=== PATIENT | female | born 1970 | race Two or more races ===

== ENCOUNTER → 2019-06-03 11:57 | Outpatient (CLI) | payer OTHER | END | disposition home or self-care (01) | LOC: LAB 11:57 | DX: N30.01 Acute cystitis with hematuria (principal) ==

== ENCOUNTER 2019-10-11 09:42 | Outpatient (CLI) | payer OTHER | END 2019-10-11 15:00 | disposition home or self-care (01) | LOC: LAB 09:42 | DX: J11.1 Influenza due to unidentified influenza virus with other respiratory manifestations (principal) ==

== ENCOUNTER → 2020-01-29 12:24 | Outpatient (CLI) | payer OTHER ==
[~2020-01-29 12:24] MED LIST: PERCOCET 5-3251 EACH PO; RECTICARE30 GM TOP
== END | disposition home or self-care (01) ==
LOC: EKG 12:24
PROVIDERS: ATTEND Surgery
DX: I10 Essential (primary) hypertension (principal); K62.5 Hemorrhage of anus and rectum; K64.8 Other hemorrhoids; K59.09 Other constipation

== ENCOUNTER 2020-02-05 05:40 | Day surgery (SDC) | payer OTHER ==
[2020-02-05] MEDS ORDERED: PERCOCET 5-3251 EACH PO (10:19)
[2020-02-05] MEDS ORDERED: RECTICARE30 GM TOP (10:20)
== END 2020-02-05 15:20 | disposition home or self-care (01) ==
LOC: CIR.AMB 05:40 → ADM 14:15 → CIR.AMB 14:15
PROVIDERS: ATTEND Surgery
DX: K64.8 Other hemorrhoids (principal)

== ENCOUNTER 2022-03-14 05:49 | Day surgery (SDC) | payer OTHER ==
[~2022-03-14 05:49] MED LIST changes: +DAILY VALUE1 EACH PO
== END 2022-03-14 23:00 | disposition home or self-care (01) ==
LOC: CIR.AMB 05:49
PROVIDERS: ATTEND Student in an Organized Health Care Education/Training Program
DX: N84.0 Polyp of corpus uteri (principal); Z20.822 Contact with and (suspected) exposure to COVID-19; Z88.0 Allergy status to penicillin; I10 Essential (primary) hypertension; Z86.16 Personal history of COVID-19

== ENCOUNTER 2023-05-05 15:50 | Emergency (ER) | payer OTHER ==
[~2023-05-05] VITALS: Ht 160 cm; Wt 68.0 kg
[2023-05-05] MEDS ORDERED: PEPCID AC20 MG PO (18:19)
[2023-05-05] MEDS ORDERED: METRONIDAZOLE500 MG PO (18:19)
== END 2023-05-05 18:30 | disposition home or self-care (01) ==
LOC: ER 15:50
PROVIDERS: General Practice
DX: R19.7 Diarrhea, unspecified (principal); Z88.0 Allergy status to penicillin; Z20.822 Contact with and (suspected) exposure to COVID-19

== ENCOUNTER 2024-03-06 12:36 | Emergency (ER) | payer OTHER ==
[~2024-03-06] VITALS: Ht 160 cm; Wt 56.7 kg
[~2024-03-06 12:36] MED LIST changes: +METRONIDAZOLE500 MG PO; +PEPCID AC20 MG PO
[2024-03-06 14:52] LABS: HEMATOCRIT 38.2 % (36.0-45.00); MEAN CELL VOLUME 93.1 fL (80.00-100.00); MEAN CORPUSCULAR HEMOGLOBIN 31.6 pg (27.00-32.0); MEAN CORPUSCULAR HGB CONC 33.9 g/dl (32.0-36.0); PLATELET COUNT 194 K/uL (150-450); RED CELL DISTRIBUTION WIDTH 14.2 % (11.5-14.5)
[2024-03-06 15:23] LABS: CALCIUM 9.3 mg/dL (8.5-10.1); CREATININE SERUM 0.82 mg/dL (0.55-1.02); GFR 73.21; POTASSIUM 3.74 mEq/L (3.5-5.1)
[2024-03-06 15:38] LABS: D DIMER 0.32 MG/L; PARTIAL THROMBOPLASTIN TIME 31.6 SECONDS (22.0-34.0)
[2024-03-06 15:43] LABS: INR 1.07; PROTHROMBIN TIME 11.2 SECONDS (9.0-11.5)
[2024-03-06] MEDS ORDERED: KETOROLAC TROMETHAMINE 60 MG VIAL IM ONE (16:15)
== END 2024-03-06 17:19 | disposition home or self-care (01) ==
LOC: ER 12:37
PROVIDERS: Nurse Practitioner Family
DX: I87.2 Venous insufficiency (chronic) (peripheral) (principal); Z88.0 Allergy status to penicillin